=== PATIENT | female | born 1965 | race American Indian/Alaskan Native ===

== ENCOUNTER 2016-07-05 02:15 | Inpatient (IN) | payer OTHER ==
[2016-07-05 02:53] VITALS: BMI 42.9
--- NOTE | 2016-07-05 03:24 | ED PDOC ---
Arrival/HPI - General Chief Complaint: GI Problem Time Seen by Provider: 07/05/16 03:00 Historian: Patient - History of Present Illness Narrative History of Present Illness (Text): 07/05/16 03:21 Bobbi Urbano is a 50 year old female, whose past medical history includes hypertension, asthma, gastritis, and cholecystectomy, presents to the the emergency department complaining of mild abdominal discomfort associated with nausea, vomiting, and diarrhea since yesterday. Also reports of subjective fever , chills and generalized body aches. Denies taking any mediations for the symptoms. Denies headache, dizziness, chest pain, shortness of breath, back pain , urinary symptoms, or any other complaints at this time. Time/Duration: Other (since yesterday ) Symptom Onset: Gradual Symptom Course: Unchanged Severity Level: Mild Activities at Onset: Light Past Medical History - Provider Review Nursing Documentation Reviewed: Yes - Infectious Disease Hx of Infectious Diseases: None - Cardiac Hx Cardiac Disorders: No Hx Angina: No Hx Cardiac Arrhythmia: No Hx Circulatory Problems: No Hx Congestive Heart Failure: No Hx Heart Murmur: No Hx Heart Transplant: No Hx Hypertension: No Hx Internal Defibrillator: No Hx Mitral Valve Prolapse: No Hx Pacemaker: No Hx Peripheral Edema: No Hx Peripheral Vascular Disease: No - Pulmonary Hx Respiratory Disorders: No Hx Asthma: Yes Hx Bronchitis: No Hx Chronic Obstructive Pulmonary Disease (COPD): No Hx Emphysema: No Hx Pneumonia: No Hx Respiratory Aspiration: No Hx Respiratory Tract Infection: No Hx Sleep Apnea: No Hx Tuberculosis: No - Neurological Hx Neurological Disorder: No Hx Alzheimer's Disease: No HX Cerebrovascular Accident: No Hx Dementia: No Hx Dizziness: No Hx Meningitis: No Hx Migraine: No Hx Parkinson's Disease: No Hx Seizures: No Hx Transient Ischemic Attacks (TIA): No - HEENT Hx HEENT Disorder: No Hx Blind: No Hx Cataracts: No Hx Deafness: No Hx Difficulty Chewing: No Hx Epistaxis: No Hx Glaucoma: No Hx Macular Degeneration: No - Renal Hx Renal Disorder: No Hx Dialysis: No Hx Kidney Stones: No Hx Neurogenic Bladder: No Hx Pyelonephritis: No Hx Renal Cancer: No Hx Renal Failure: No - Endocrine/Metabolic Hx Endocrine Disorders: No Hx Adrenal Cancer: No Hx Diabetes Insipidus: No Hx Diabetes Mellitus Type 1: No Hx Diabetes Mellitus Type 2: No Hx Hyperthyroidism: No Hx Hypothyroidism: No Hx Systemic Lupus Erythematosus: No - Hematological/Oncological Hx Blood Disorders: No Hx AIDS: No Hx Anemia: No Hx Cancer: No Hx Chemotherapy: No Hx Cirrhosis: No Hx Hemophilia: No Hx Hepatitis A: No Hx Hepatitis B: No Hx Hepatitis C: No Hx Metastasis: No Hx Shingles: No Hx Sickle Cell Disease: No Hx Unexplained Bleeding: No - Integumentary Hx Dermatological Disorder: No Hx Basal Cell Carcinoma: No Hx Eczema: No Hx Melanoma: No Hx Psoriasis: No Hx Squamous Cell Carcinoma: No - Musculoskeletal/Rheumatological Hx Musculoskeletal Disorders: No Hx Arthritis: No Hx Back Pain: No Hx Degenerative Joint Disease: No Hx Falls: No Hx Fractures: No Hx Gout: No Hx Herniated Disk: No Hx Myasthenia Gravis: No Hx Osteoarthritis: No Hx Osteomyelitis: No Hx Osteoporosis: No Hx Rhabdomyolysis: No Hx Spinal Stenosis: No Hx Unsteady Gait: No - Gastrointestinal Hx Gastrointestinal Disorders: No Hx Colostomy: No Hx Crohn's Disease: No Hx Diverticulitis: No Hx Gall Bladder Disease: No Hx Gastritis: Yes Hx Gastroesophageal Reflux: No Hx Gastrointestinal Ulcer: No Hx Ileostomy: No Hx Liver Failure: No Hx Pancreatitis: No HX Swallowing Problems: No - Genitourinary/Gynecological Hx Genitourinary Disorders: No Hx Hematuria: No Hx Incontinence: No Hx Prostate Problems: No Hx Sexually Transmitted Diseases: No Hx Urinary Tract Infection: No - Psychiatric Hx Psychophysiologic Disorder: No Hx Anxiety: No Hx Bipolar Disorder: No Hx Depression: No Hx Emotional Abuse: No Hx Hallucinations: No Hx Panic Disorder: No Hx Post Traumatic Stress Disorder: No Hx Psychosis: No Hx Physical Abuse: No Hx Schizophrenia: No Hx Sexual Abuse: No Hx Substance Use: No - Surgical History Hx Amputation: No Hx Appendectomy: Yes Hx Cardiac Catheterization: No Hx Cholecystectomy: Yes Hx Coronary Stent: No Hx Gastric Bypass Surgery: No Hx Hysterectomy: No Hx Joint Replacement: No Hx Kidney Transplant: No Hx Liver Transplant: No Hx Mastectomy: No Hx Musculoskeletal Surgery: No Hx Open Heart Surgery: No Hx Orthopedic Surgery: No Hx Splenectomy: No Hx Valve Replacement: No - Anesthesia Hx Anesthesia: No Hx Anesthesia Reactions: No Hx Malignant Hyperthermia: No Family/Social History - Physician Review Nursing Documentation Reviewed: Yes Family/Social History: No Known Family HX Smoking Status: Never Smoked Hx Alcohol Use: No Hx Substance Use: No Allergies/Home Meds Allergies/Adverse Reactions: Allergies No Known Allergies Allergy (Verified 07/05/16 02:53) Home Medications: Home Meds Medication Instructions Recorded Confirmed Fluticasone/Salmeterol 250/50 1 puff INH DAILY 02/07/15 05/18/15 [Advair Diskus 250/50] Lisinopril 10 mg PO DAILY 02/07/15 05/18/15 Review of Systems - Physician Review All systems were reviewed & negative as marked: Yes - Review of Systems Constitutional: Fatigue, Fevers Respiratory: Normal. absent: SOB, Cough Cardiovascular: Normal. absent: Chest Pain, Palpitations Gastrointestinal: Abdominal Pain, Diarrhea, Nausea, Vomiting Genitourinary Female: Normal. absent: Dysuria, Frequency Musculoskeletal: Normal Neurological: Normal. absent: Headache, Dizziness Psychiatric: Normal Physical Exam Vital Signs Reviewed: Yes Vital Signs Temp Pulse Resp BP Pulse Ox 07/05/16 06:17 100.2 F H 99 H 20 116/76 97 07/05/16 03:34 101.7 F H 07/05/16 02:53 101.7 F H 63 18 99 07/05/16 02:51 101.7 F H 123 H 18 129/83 96 Temperature: Febrile Blood Pressure: Hypertensive Pulse: Regular Respiratory Rate: Normal Appearance: Positive for: Well-Appearing, Non-Toxic, Comfortable Pain Distress: None Mental Status: Positive for: Alert and Oriented X 3 - Systems Exam Head: Present: Atraumatic, Normocephalic Pupils: Present: PERRL Conjunctiva: Present: Normal Mouth: Present: Moist Mucous Membranes Respiratory/Chest: Present: Clear to Auscultation, Good Air Exchange. No: Respiratory Distress, Accessory Muscle Use Cardiovascular: Present: Regular Rate and Rhythm, Normal S1, S2. No: Murmurs Abdomen: Present: Normal Bowel Sounds. No: Tenderness, Distention, Peritoneal Signs Upper Extremity: Present: Normal Inspection. No: Cyanosis, Edema Lower Extremity: Present: Normal Inspection. No: Edema Neurological: Present: GCS=15, CN II-XII Intact, Speech Normal Skin: Present: Warm, Dry, Normal Color. No: Rashes Psychiatric: Present: Alert, Oriented x 3, Normal Insight, Normal Concentration Medical Decision Making ED Course and Treatment: 07/05/16 03:26 Impression: A 50 year old female who presents to the emergency department complaining of some abdominal discomfort associated with nausea, vomiting, and diarrhea. Plan: -- Labs, lipase -- CT abdomen pelvis -- Chest X-ray -- Pepcid -- IV fluids -- Tylenol -- Zofran -- Blood culture -- Urine culture -- Urinalysis -- Reassess and disposition Progress Notes: 07/05/16 05:48 CT abdomen pelvis results reviewed: IMPRESSION: High suspicion for right lower lobe pneumonia. The lung pathology is not imaged in its entirety. Fibroid uterus Common bile duct prominent, laboratory correlation, noting that this may be chronic for this patient. diverticulosis with no specific findings of acute diverticulitis. Please refer to the final report, as additional comparisons or other additional information may be available at that time. 07/05/16 05:55 Chest X-ray interpreted by me: Right lower lobe infiltrate. 07/05/16 06:21 Case was discussed with .Accepts to her service.. - Lab Interpretations Lab Results: 07/05/16 03:29 07/05/16 03:29 Lab Results 07/05/16 03:31: Urine Color Yellow, Urine Appearance Sl cloudy, Urine pH 6.0, Ur Specific [place] >= 1.030, Urine Protein 30 H, Urine Glucose (UA) Negative, Urine Ketones Negative, Urine Blood Trace-intact H, Urine Nitrate Negative, Urine Bilirubin Negative, Urine Urobilinogen 0.2, Ur Leukocyte Esterase Negative , Urine RBC 0 - 2, Urine WBC 0 - 2, Ur Epithelial Cells 1 - 3 07/05/16 03:29: pO2 81 H, VBG pH 7.42, VBG pCO2 41.0, VBG HCO3 26.6, VBG Total CO2 27.9, VBG O2 Sat (Calc) 98.4 H, VBG Base Excess 1.9, VBG Potassium 3.6, Sodium 139.0, Chloride 108.0 H, Glucose 110 H, Lactate 1.1, FiO2 21.0, Venous Blood Potassium 3.6 07/05/16 03:29: WBC 15.1 H D, RBC 4.21, Hgb 8.4 L, Hct 27.9 L, MCV 66.3 L, MCH 20.0 L, MCHC 30.1 L, RDW 18.3 H, Plt Count 373, MPV 9.7, Neutrophils % (Manual) 81 H, Band Neutrophils % 9 H, Lymphocytes % (Manual) 5 L, Monocytes % (Manual) 5 , Platelet Evaluation Normal, Hypochromasia 1+, Poikilocytosis (manual Slight, Anisocytosis (manual) 1+, Microcytosis (manual) 1+ 07/05/16 03:29: Sodium 139, Chloride 103, Potassium 3.5 L, Carbon Dioxide 26, Anion Gap 14, BUN 11, Creatinine 0.8, Est GFR ( Amer) > 60, Est GFR (Non- Af Amer) > 60, Random Glucose 107, Calcium 8.9, Total Bilirubin 0.8, AST 17, ALT 30, Alkaline Phosphatase 69, Total Protein 7.7, Albumin 3.9, Globulin 3.8, Albumin/Globulin Ratio 1.0 L, Lipase 32 I have reviewed the lab results: Yes - RAD Interpretation Narrative RAD Interpretations (Text): EXAM: CT Abdomen and Pelvis Without Intravenous Contrast FINDINGS: Lower thorax: There are numerous centrilobular nodules seen in an area of groundglass opacity in the right lower lobe, see for example series 2 image 5 and adjacent, the finding is in keeping with pneumonia, other causes less likely, although confirmation of complete clearing is recommended. There is note that this finding is not imaged in its entirety. Large hiatus hernia. ABDOMEN: Liver: 20.4cm, prominent. Gallbladder and bile ducts: Status post cholecystectomy. Common bile duct is 10 mm, prominent, however this may be chronic noting prior cholecystectomy, left correlation is recommended. Pancreas: Unremarkable. No ductal dilation. Spleen: Unremarkable. No splenomegaly. Adrenals: Unremarkable. No mass. Kidneys and ureters: No ureteral stones are seen noting that punctate stones or noncalcified stones may not be well seen on CT. punctate pelvic calcifications appear stable and are favored to represent phleboliths. Stomach and bowel: Diverticular disease with no specific findings of acute diverticulitis. limited evaluation of the bowel wall related to under distention with no findings to suggest an acute bowel process. Appendix: The appendix is within normal limits. PELVIS: Bladder: Unremarkable. No stones. Reproductive: Redemonstration of a prominent uterus with fibroids, including again note of bilateral exophytic fibroids at the anterior aspect of the uterus. ABDOMEN and PELVIS: Intraperitoneal space: There is no free intraperitoneal air. No significant fluid collection. Bones/joints: Bony structures with no acute fractures. No dislocation. Soft tissues: There is a small fat containing anterior abdominal hernia.No abdominal wall hernias containing bowel. Vasculature: Unremarkable. No abdominal aortic aneurysm. Lymph nodes: There are small mesenteric nodes, these do not meet size criteria for pathologic enlargement. Other findings: There is comparison to previous study dated May 18, 2015. IMPRESSION: High suspicion for right lower lobe pneumonia. The lung pathology is not imaged in its entirety. Fibroid uterus Common bile duct prominent, laboratory correlation, noting that this may be chronic for this patient. diverticulosis with no specific findings of acute diverticulitis. Please refer to the final report, as additional comparisons or other additional information may be available at that time. Radiology Orders: 07/05/16 03:05 CHEST PORTABLE [RAD] Stat 07/05/16 04:17 ABD & PELVIS W/O PO OR IV CONT [CT] Stat Traffic Control Supervisor: Radiologist - Medication Orders Current Medication Orders: Ceftriaxone Sodium (Rocephin 1 Gram Ivpb) 1 gm in 100 mls @ 200 mls/hr IV ONCE STA PRN Reason: Protocol Stop: 07/05/16 06:23 Azithromycin (Zithromax 500mg In Ns) 500 mg in 250 mls @ 166.667 mls/hr IV STAT STA PRN Reason: Protocol Stop: 07/05/16 07:23 Discontinued Medications Acetaminophen (Tylenol 325mg Tab) 650 mg PO STAT STA Stop: 07/05/16 03:07 Last Admin: 07/05/16 03:34 Dose: 650 mg Famotidine (Pepcid) 20 mg IVP STAT STA Stop: 07/05/16 03:07 Last Admin: 07/05/16 03:34 Dose: 20 mg Sodium Chloride (Sodium Chloride 0.9%) 1,000 mls @ 999 mls/hr IV .Q1H1M STA Stop: 07/05/16 04:06 Last Admin: 07/05/16 05:26 Dose: 999 mls/hr Ondansetron HCl (Zofran Inj) 4 mg IVP ONCE ONE Stop: 07/05/16 03:07 Last Admin: 07/05/16 03:35 Dose: 4 mg - Scribe Statement The provider has reviewed the documentation as recorded by the Jt Caldwell Provider Attestation: All medical record entries made by the Jt were at my direction and personally dictated by me. I have reviewed the chart and agree that the record accurately reflects my personal performance of the history, physical exam, medical decision making, and the department course for this patient. I have also personally directed, reviewed, and agree with the discharge instructions and disposition. Disposition/Present on Arrival - Present on Arrival Any Indicators Present on Arrival: No History of DVT/PE: No History of Uncontrolled Diabetes: No Urinary Catheter: No History of Decub. Ulcer: No History Surgical Site Infection Following: None - Disposition Have Diagnosis and Disposition been Completed?: Yes Diagnosis: Pneumonia, Gastroenteritis, Anemia Disposition: HOSPITALIZED Disposition Time: 06:21 Patient Plan: Admission Condition: STABLE Referrals: Justin Bonner, [Primary Care Provider] - Follow up with primary
[2016-07-05] MEDS: Sodium Chloride 0.9% 1,000 ML IV STA ×2 (03:34→05:26)
[2016-07-05 03:45] LABS: URINE BILIRUBIN NEGATIVE (NEGATIVE); URINE BLOOD TRACE-INTACT (NEGATIVE); URINE GLUCOSE (UA) NEGATIVE (NEGATIVE); URINE KETONE NEGATIVE (NEGATIVE); URINE LEUKOCYTE ESTERASE NEGATIVE Leu/uL (NEGATIVE); URINE PROTEIN 30 mg/dL (<30 mg/dL); URINE UROBILINOGEN 0.2 E.U./dL (<1 E.U./dL)
[2016-07-05 03:52] LABS: ALKALINE PHOSPHATASE 69 U/L (38-133); ALT/SGPT 30 U/L (7-56); AST/SGOT 17 U/L (15-39); BILIRUBIN,TOTAL 0.8 mg/dL (0.2-1.3); BLOOD UREA NITROGEN 11 mg/dL (7-21); CALCIUM 8.9 mg/dL (8.4-10.5); CARBON DIOXIDE 26 mmol/L (21-33); CHLORIDE 103 mmol/L (95-110); GFR AFRICAN-AMERICAN > 60; GLUCOSE,RANDOM 107 mg/dL (70-110); HEMATOCRIT 27.9 % (36.0-48.0); LIPASE 32 U/L (23-300); MEAN CELL VOLUME 66.3 fL (80.0-105.0); MEAN CORPUSCULAR HGB CONC 30.1 g/dl (31.0-37.0); MEAN PLATELET VOLUME 9.7 fl (7.0-11.0); PLATELET COUNT 373 10^3/uL (120.0-450.0); POTASSIUM 3.5 mmol/L (3.6-5.0); RED CELL DISTRIBUTION WIDTH 18.3 % (11.5-14.5); SODIUM 139 mmol/L (132-148); TOTAL PROTEIN 7.7 g/dL (5.8-8.3); WHITE BLOOD COUNT 15.1 10^3/ul (4.5-11.0)
[2016-07-05 04:06] LABS: URINE APPEARANCE SL CLOUDY (CLEAR); URINE COLOR YELLOW (YELLOW)
[2016-07-05 04:08] LABS: URINE RBC 0 - 2 /hpf (0-2); URINE WBC 0 - 2 /hpf (0-6)
[2016-07-05 04:14] LABS: VENOUS BLOOD GAS BASE EXCESS 1.9 mmol/L (0.0-2.0); VENOUS BLOOD PH 7.42 (7.32-7.43)
[2016-07-05 05:04] LABS: BAND 9 % (0-2); NEUTROPHIL 81 % (50.0-70.0)
[2016-07-05 05:05] LABS: ANISOCYTOSIS 1+; HYPOCHROMIA 1+; MICROCYTOSIS 1+; PLATELET ESTIMATE NORMAL (NORMAL); POIKILOCYTOSIS SLIGHT
[2016-07-05] MEDS: cefTRIAXone 1 gm 1 GM/100 ML BAG IV STA ×2 (06:29→07:09)
[2016-07-05] MEDS ORDERED: Sodium Chloride 0.9% 1,000 ML IV STA (06:30)
[2016-07-05] MEDS: Azithromycin 500MG/NS 250ml 500 MG/250 ML BAG IV STA (07:10)
--- NOTE | 2016-07-05 08:02 | RAD ---
HISTORY: fever COMPARISON: No prior. FINDINGS: LUNGS: There is mild vascular congestion. There is a minimal patchy infiltrate at the right lung base PLEURA: No significant pleural effusion identified, no pneumothorax apparent. CARDIOVASCULAR: Normal. OSSEOUS STRUCTURES: No significant abnormalities. VISUALIZED UPPER ABDOMEN: Normal. OTHER FINDINGS: None. IMPRESSION: Minimal patchy infiltrate at the right lung base
--- NOTE | 2016-07-05 08:39 | CT ---
PROCEDURE: CT Abdomen and Pelvis without intravenous contrast HISTORY: pain COMPARISON: 05/18/2015 TECHNIQUE: Without contrast. Contrast Dose: Radiation dose: Total exam DLP = 1342 mGy-cm. This CT exam was performed using one or more of the following dose reduction techniques: Automated exposure control, adjustment of the mA and/or kV according to patient size, and/or use of iterative reconstruction technique. FINDINGS: LOWER THORAX: There is an infiltrate at the right lung base consistent with pneumonia. LIVER: Unremarkable. No gross lesion or ductal dilatation. GALLBLADDER AND BILE DUCTS: Gallbladder removed PANCREAS: Unremarkable. No gross lesion or ductal dilatation. SPLEEN: Unremarkable. ADRENALS: Unremarkable. No mass. KIDNEYS AND URETERS: Unremarkable. No hydronephrosis. No solid mass. VASCULATURE: Unremarkable. No aortic aneurysm. BOWEL: Unremarkable. No obstruction. No gross mural thickening. APPENDIX: Unremarkable. Normal appendix. PERITONEUM: Unremarkable. No free fluid. No free air. LYMPH NODES: Unremarkable. No enlarged lymph nodes. BLADDER: Unremarkable. REPRODUCTIVE: Fibroid uterus BONES: No acute fracture. OTHER FINDINGS: The report concurs with the preliminary [facility] report IMPRESSION: Right lower lobe pneumonia. No acute intra-abdominal findings
[2016-07-05] MEDS ORDERED: Fluticasone-Salmeterol 250-50mcg Diskus INH SCH (10:00)
[2016-07-05] MEDS ORDERED: LISINOPRIL 10 MG PO SCH (10:00)
--- NOTE | 2016-07-05 12:45 | CON ---
DATE: 07/05/2016 Seen and examined at the bedside earlier today. REQUEST FOR CONSULT: Gastroenteritis and anemia. HISTORY OF PRESENT ILLNESS: This is a 50-year-old obese female with a past medical history of hypert ension, asthma, diverticulitis, came to the Emergency Room with complaints of abdominal pain, nausea, vomiting and diarrhea. The patient reports that Monday she started out with a fever and Monday star gunnar having nausea, vomiting, and diarrhea around 11:00 a.m. She denies any recent travel, any contri buting oral intake, but does report that her grandson was sick at home with a fever and some oral inf ection as well as her son who was having a sore throat at home. She did state that she was sick abou t 2 months ago with strep throat and was on antibiotics of amoxicillin. When her symptoms of fever s tarted, she took an amoxicillin. She had 2 episodes of diarrhea while here in the hospital. No repo rts of any bleeding, did complain of nausea, but no vomiting. Complains of chills. On admission, geovanni ho did have a temperature of 101.7. She also had a chest x-ray done on admission which showed patchy infiltrate in the right lung base. Her CT scan of abdomen and pelvis was negative for acute intraabd ominal findings. She denies any dysuria, any hematuria. No shortness of breath. Denies chest pain, weight loss or loss of appetite. PAST MEDICAL HISTORY: Hypertension, asthma, gastritis, diverticulitis back in 2014. PAST SURGICAL HISTORY: Cholecystectomy. She has never had an endoscopy or colonoscopy. She was rec ommended colonoscopy in the past, but has not scheduled this. SOCIAL HISTORY: Denies smoking, ETOH, or substance abuse. FAMILY HISTORY: Her paternal grandfather with colon cancer. VITAL SIGNS: Her temperature this morning was 99.5, 105/56, respirations 18, 95 on room air. At 6:0 0 a.m., her temp was 100.2. LABORATORY DATE: WBC is 15.1, H and H is 8.4 and 27.9, platelets of 373. Her sodium 139, K is 3.5, BUN is 11 and creatinine is 0.8. Total bilirubin is 0.8, AST 17, ALT 30, alkaline phosphatase is 69. Lipase is 32. Urine leuko esterase negative, trace intact blood. Last menstrual period was last m onth. She gets it regularly. Chest x-ray showed mild vascular congestion, minimal patchy infiltrate in the right lung base. The C T scan shows infiltrate in the right lung base consistent with pneumonia, cholecystectomy, no acute i ntraabdominal findings. PHYSICAL EXAMINATION: HEENT: Sclerae are anicteric. NECK: Supple. CARDIAC: S1, S2. LUNGS: With decreased breath sounds. Did not hear any rales or wheeze. ABDOMEN: With bowel sounds, soft, nontender at this time. No rebound, guarding, or organomegaly. EXTREMITIES: Positive pedal pulses, no edema. NEUROLOGIC: Awake, alert, and oriented. ASSESSMENT: A 50-year-old female who came with complaints of nausea, vomiting, diarrhea and fever, m ay be viral gastroenteritis. The patient with recent history of strep throat as well and recent anti biotic use. Rule out any Clostridium difficile. The patient also with infiltrates in the lung, rule out pneumonia. She is also noted to have anemia, history of diverticulitis, hypertension and asthma . PLAN: Start clear liquid diet, see how the patient tolerates this. We will request for a stool for C. diff in view of history of antibiotics. We will also follow up blood cultures, urine cultures, co ntinue GI prophylaxis, on Pepcid. The patient is on IV antibiotics of azithromycin and ceftriaxone, is also on Solu-Medrol, continue IV fluids for hydration. I did discuss with the patient that she wo uld benefit from elective outpatient endoscopy and colonoscopy when optimal in view of anemia as well as the patient has been on long-term PPI and also the patient has never had a colonoscopy as well. We will also request for iron studies, B12, folate and folic acid levels. Thank you for this consult and for allowing us to participate in your patient's care. We will make andreas paredes recommendations based upon patient's clinical course. The patient was seen and case discussed with Dr. Adame. Kaylee Keira LEOLA cc: [id number] TT: 07/05/2016 12:45:08 Confirmation # [id number] Dictation # [id number]
[2016-07-05] MEDS: Arformoterol 15 mcg/2 ml Inh Sol IH SCH (13:40)
[2016-07-05] MEDS: Albuterol-Ipratrop 3 mg / 0.5 (3 ml) UD IH SCH ×2 (13:40→20:02)
[2016-07-05] MEDS: Budesonide 0.5 mg/2 ml Inhal Susp UD IH SCH (13:40)
--- NOTE | 2016-07-05 19:48 | CP.PCM.CON ---
History of Present Illness - History of Present Illness History of Present Illness: Infectious Disease Consultation: July 05, 2016 50 yo female with presentation of nausea, vomiting, diarrhea, and subjective fevers and chills. She also complains of body aches. She is found to have a fever up to 102.2 and leukocytosis of 15 in the ER. The patient had strep throat two months ago. She was given amoxicillin for treatment. The patient still takes amoxicillin doses when she feels febrile. PMHx: Asthma, Hypertension, gastritis PSHx: Cholecystectomy Allergies: NKDA Social Hx: No tobacco, EtOH, or illicit drug use. Works a desk job Active Medications Acetaminophen (Tylenol 325mg Tab) 650 mg PO Q6H PRN PRN Reason: Fever >100.4 F Albuterol/Ipratropium (Duoneb 3 Mg/0.5 Mg (3 Ml) Ud) 3 ml IH [id number] COUNTS INCLUDE 234 BEDS AT THE [facility] Last Admin: 07/05/16 13:40 Dose: 3 ml Arformoterol Tartrate (Brovana) 15 mcg IH DAILY COUNTS INCLUDE 234 BEDS AT THE [facility] Last Admin: 07/05/16 13:40 Dose: 15 mcg Budesonide (Pulmicort Respules) 0.5 mg IH DAILY COUNTS INCLUDE 234 BEDS AT THE [facility] Last Admin: 07/05/16 13:40 Dose: 0.5 mg Famotidine (Pepcid) 40 mg PO HS COUNTS INCLUDE 234 BEDS AT THE [facility] Ceftriaxone Sodium (Rocephin 1 Gram Ivpb) 1 gm in 100 mls @ 100 mls/hr IVPB DAILY COUNTS INCLUDE 234 BEDS AT THE [facility] PRN Reason: Protocol Azithromycin (Zithromax 500mg In Ns) 500 mg in 250 mls @ 167 mls/hr IVPB DAILY COUNTS INCLUDE 234 BEDS AT THE [facility] Lisinopril (Zestril) 10 mg PO DAILY COUNTS INCLUDE 234 BEDS AT THE [facility] Methylprednisolone (Solu-Medrol) 20 mg IVP Q12 COUNTS INCLUDE 234 BEDS AT THE [facility] Metronidazole (Flagyl) 250 mg PO QID COUNTS INCLUDE 234 BEDS AT THE [facility] PRN Reason: Protocol Last Admin: 07/05/16 17:19 Dose: 250 mg Family Hx: breast cancer mother. Hypertension father. ROS: Nausea, vomiting, diarrhea, fevers, chills. No abdominal pain, chest pain, melena, hematuria, hematemesis, hematochezia, depression, anxiety. Past Patient History - Infectious Disease Hx of Infectious Diseases: None - Past Social History Smoking Status: Never Smoked - CARDIAC Hx Cardiac Disorders: No Hx Angina: No Hx Cardia Arrhythmia: No Hx Circulatory Problems: No Hx Congestive Heart Failure: No Hx Heart Murmur: No Hx Heart Transplant: No Hx Hypertension: No Hx Internal Defibrillator: No Hx Mitral Valve Prolapse: No Hx Pacemaker: No Hx Peripheral Edema: No Hx Peripheral Vascular Disease: No - PULMONARY Hx Respiratory Disorders: No Hx Asthma: Yes Hx Bronchitis: No Hx Chronic Obstructive Pulmonary Disease (COPD): No Hx Emphysema: No Hx Pneumonia: No Hx Respiratory Aspiration: No Hx Respiratory Tract Infection: No Hx Sleep Apnea: No Hx Tuberculosis: No - NEUROLOGICAL Hx Neurological Disorder: No Hx Alzheimer's Disease: No HX Cerebrovascular Accident: No Hx Dementia: No Hx Dizziness: No Hx Meningitis: No Hx Migraine: No Hx Parkinson's Disease: No Hx Seizures: No Hx Transient Ischemic Attacks (TIA): No - HEENT Hx HEENT Problems: No Hx Blind: No Hx Cataracts: No Hx Deafness: No Hx Difficulty Chewing: No Hx Epistaxis: No Hx Glaucoma: No Hx Macular Degeneration: No - RENAL Hx Chronic Kidney Disease: No Hx Dialysis: No Hx Kidney Stones: No Hx Neurogenic Bladder: No Hx Pyelonephritis: No Hx Renal (Kidney) Cancer: No Hx Renal Failure: No - ENDOCRINE/METABOLIC Hx Endocrine Disorders: No Hx Adrenal Cancer: No Hx Diabetes Insipidus: No Hx Diabetes Mellitus Type 1: No Hx Diabetes Mellitus Type 2: No Hx Hyperthyroidism: No Hx Hypothyroidism: No Hx Systemic Lupus Erythematosus: No - HEMATOLOGICAL/ONCOLOGICAL Hx Blood Disorders: No Hx AIDS: No Hx Anemia: No Hx Cancer: No Hx Chemotherapy: No Hx Cirrhosis: No Hx Hemophilia: No Hx Hepatitis A: No Hx Hepatitis B: No Hx Hepatitis C: No Hx Metastesis: No Hx Shingles: No Hx Sickle Cell Disease: No Hx Unexplained Bleeding: No - INTEGUMENTARY Hx Dermatological Problems: No Hx Basil Cell: No Hx Eczema: No Hx Melanoma: No Hx Psoriasis: No Hx Squamous Cell: No - MUSCULOSKELETAL/RHEUMATOLOGICAL Hx Falls: No - GASTROINTESTINAL Hx Gastrointestinal Disorders: No Hx Colostomy: No Hx Crohn's Disease: No Hx Diverticulitis: No Hx Gall Bladder Disease: No Hx Gastroesophageal Reflux: No Hx Ileostomy: No Hx Liver Failure: No Hx Pancreatitis: No HX Swallowing Problems: No - GENITOURINARY/GYNECOLOGICAL Hx Genitourinary Disorders: No Hx Hematuria: No Hx Incontinence: No Hx Sexually Transmitted Disorders: No Hx Urinary Tract Infection: No - PSYCHIATRIC Hx Psychophysiologic Disorder: No Hx Anxiety: No Hx Bipolar Disorder: No Hx Depression: No Hx Emotional Abuse: No Hx Hallucinations: No Hx Panic Symptoms: No Hx Post Traumatic Stress Disorder: No Hx Psychosis: No Hx Physical Abuse: No Hx Schizophrenia: No Hx Sexual Abuse: No - SURGICAL HISTORY Hx Amputation: No Hx Appendectomy: Yes Hx Cardiac Catheterization: No Hx Cholecystectomy: Yes Hx Coronary Stent: No Hx Gastric Bypass Surgery: No Hx Hysterectomy: No Hx Joint Replacement: No Hx Kidney Transplant: No Hx Liver Transplant: No Hx Mastectomy: No Hx Musculoskeletal Surgery: No Hx Open Heart Surgery: No Hx Orthopedic Surgery: No Hx Splenectomy: No Hx Valve Replacement: No - ANESTHESIA Hx Anesthesia: No Hx Anesthesia Reactions: No Hx Malignant Hyperthermia: No Meds Allergies/Adverse Reactions: Allergies Allergy/AdvReac Type Severity Reaction Status Date / Time No Known Allergies Allergy Verified 07/05/16 02:53 - Medications Medications: Current Medications Acetaminophen (Tylenol 325mg Tab) 650 mg PO Q6H PRN PRN Reason: Fever >100.4 F Albuterol/Ipratropium (Duoneb 3 Mg/0.5 Mg (3 Ml) Ud) 3 ml IH [id number] COUNTS INCLUDE 234 BEDS AT THE [facility] Last Admin: 07/05/16 13:40 Dose: 3 ml Arformoterol Tartrate (Brovana) 15 mcg IH DAILY COUNTS INCLUDE 234 BEDS AT THE [facility] Last Admin: 07/05/16 13:40 Dose: 15 mcg Budesonide (Pulmicort Respules) 0.5 mg IH DAILY COUNTS INCLUDE 234 BEDS AT THE [facility] Last Admin: 07/05/16 13:40 Dose: 0.5 mg Famotidine (Pepcid) 40 mg PO HS COUNTS INCLUDE 234 BEDS AT THE [facility] Ceftriaxone Sodium (Rocephin 1 Gram Ivpb) 1 gm in 100 mls @ 100 mls/hr IVPB DAILY COUNTS INCLUDE 234 BEDS AT THE [facility] PRN Reason: Protocol Azithromycin (Zithromax 500mg In Ns) 500 mg in 250 mls @ 167 mls/hr IVPB DAILY COUNTS INCLUDE 234 BEDS AT THE [facility] Lisinopril (Zestril) 10 mg PO DAILY COUNTS INCLUDE 234 BEDS AT THE [facility] Methylprednisolone (Solu-Medrol) 20 mg IVP Q12 COUNTS INCLUDE 234 BEDS AT THE [facility] Metronidazole (Flagyl) 250 mg PO QID COUNTS INCLUDE 234 BEDS AT THE [facility] PRN Reason: Protocol Last Admin: 07/05/16 17:19 Dose: 250 mg Physical Exam - Constitutional Appears: Non-toxic, No Acute Distress - Head Exam Head Exam: ATRAUMATIC, NORMOCEPHALIC - Eye Exam Eye Exam: PERRL Pupil Exam: NORMAL ACCOMODATION, PERRL - ENT Exam ENT Exam: Mucous Membranes Moist, Normal External Ear Exam, TM's Normal Bilaterally - Neck Exam Neck exam: Positive for: Full Rom, Normal Inspection - Respiratory Exam Respiratory Exam: Decreased Breath Sounds, Rhonchi, NORMAL BREATHING PATTERN. absent: Rales, Wheezes Additional comments: rhonchi right lower lobe. - Cardiovascular Exam Cardiovascular Exam: REGULAR RHYTHM, RRR, +S1, +S2 - GI/Abdominal Exam GI & Abdominal Exam: Normal Bowel Sounds, Soft. absent: Distended, Tenderness - Extremities Exam Extremities exam: Positive for: full ROM, normal inspection - Neurological Exam Neurological exam: Alert, CN II-XII Intact, Oriented x3 - Psychiatric Exam Psychiatric exam: Normal Affect, Normal Mood - Skin Skin Exam: Intact, Normal Color Results - Vital Signs Recent Vital Signs: Last Vital Signs Temp 100.2 F H 07/05/16 16:00 Pulse 102 H 07/05/16 16:00 Resp 18 07/05/16 16:00 BP 122/74 07/05/16 16:00 Pulse Ox 95 07/05/16 16:00 - Labs Result Diagrams: 07/05/16 03:29 07/05/16 03:29 Assessment & Plan - Assessment and Plan (Free Text) Assessment: 50 yo female with nausea, vomiting, diarrhea, and fevers up to 102.2 F. The patient with inconsistent antibiotic use with amoxicillin. Findings of RLL pneunomia on Chest X-ray and CT scan. Patient started on Rocephin, Azithromycin , and Metronidazole. Agree with testing for C. diff. Supportive care. Monitor imaging studies and leukocytosis. Julian cultures sent. The use of Rocephin, Azithromycin, and Flagyl are adequate treatment for now. Thank you for allowing me to participate in the care of the patient, we will follow with you.
[2016-07-05 21:49] LABS: FOLATE > 20.0 ng/mL
[2016-07-05] MEDS ORDERED: MethylPREDNISolone 40 mg Vial IVP SCH (22:00)
[2016-07-06] MEDS: Albuterol-Ipratrop 3 mg / 0.5 (3 ml) UD IH SCH ×4 (03:00→20:19)
--- NOTE | 2016-07-06 03:13 | CON ---
DATE: 07/05/2016 ADDENDUM: HISTORY OF PRESENT ILLNESS: This patient was seen and evaluated earlier today. This is an addendum to the GI consultation report dictated by Kaylee Crockett NP. This patient was seen and evaluated [facility], imaging studies reviewed. The patient is admitted now with pneumonia. Has history of iron defic iency anemia. IMPRESSION: She has severe anemia. PLAN: The patient would benefit from endoscopic evaluation. Has episodes of diarrhea before. Prese ntly on two different antibiotics, ceftriaxone and also Zithromax. The reasonable thing is now to ad d the p.o. Flagyl at the present time. Waiting for the stool for Clostridium difficile. The patient would benefit from the upper GI endoscopy and colonoscopy. This could be considered once her respir atory status improves electively. Close followup of hemoglobin and hematocrit. Thank you very much for allowing us to participate in the care of the patient. Stephen Adame MD cc: [id number] TT: 07/06/2016 03:12:30 Confirmation # [id number] Dictation # [id number] anni
--- NOTE | 2016-07-06 05:05 | CON ---
DATE: 07/05/2016 REFERRING PHYSICIAN: Dr. Sorensen. REASON FOR CONSULT: Cough, shortness of breath, and pneumonia. HISTORY OF PRESENT ILLNESS: This is a 50-year-old female with past medical history significant for c hronic obstructive lung disease, hypertension, diverticulitis, lumbar radiculopathy, overweight, came into Emergency Room with nausea, vomiting, diarrhea. Also, started having fever 2 days ago. Did valenzuela ve a sick contact in the family. She was taking amoxicillin as an outpatient without much relief. F inally, had fever up to 101 and came to Emergency Room where CAT scan of the abdomen was done, shows patchy pulmonary infiltrates. She was started on antibiotics. There is no hemoptysis, no emesis, no hematuria, no diarrhea. Admits to have snoring at nighttime, daytime sleepy and tired. PAST MEDICAL HISTORY: Hypertension, history of diverticulitis, asthma. SOCIAL HISTORY: Denied any smoking or alcohol use. FAMILY HISTORY: No significant cardiopulmonary disease reported. MEDICATIONS: She is on Brovana 15 mcg inhaled daily, DuoNeb q. 6 hours p.r.n., Flagyl 250 mg q.i.d., Lovenox 40 mg daily, Pepcid 40 mg at bedtime, IV fluid with potassium 100 mL per hour, Pulmicort inh aled twice a day, Rocephin 1 gram daily, Tylenol p.r.n., Zestril 10 mg daily, Zithromax 500 mg daily, Zofran on a p.r.n. basis. REVIEW OF SYSTEMS: No headache, no rhinitis. Had nausea and vomiting. Mild cough. No shortness of breath. No chest pain. No dysuria. No leg pain or leg swelling. Admits she has snoring at nightt pete, daytime sleepy and tired. PHYSICAL EXAMINATION: GENERAL: No acute distress. VITAL SIGNS: Temperature is 102.2, heart rate is 102, respiratory rate is 20, blood pressure 143/65, pulse ox 94% on room air. HEENT: Moist mucous membranes. Crowded airway. Mallampati score is 4. NECK: Short, thick neck. LUNGS: Has scattered rhonchi. HEART: S1, S2. ABDOMEN: Soft, nontender. No organomegaly. EXTREMITIES: There is no edema. NEUROLOGIC: Awake, alert, follows simple commands. LABORATORY DATA: Shows hemoglobin 8.4, hematocrit 27.9, WBC 15.1, platelet is 373. Had VBG done on admission shows pH 7.42, pCO2 41, O2 is 81 on room air. Sodium 139, potassium 3.5, chloride 103, bic arbonate 26, BUN 11, creatinine 0.8, glucose 107, calcium is 8.9, iron is , ferritin is 11, AST 17, ALT 30, alkaline phosphatase is 69, albumin 3.9. Vitamin B12 is 268, folate is more than 20. C T of the abdomen was remarkable for right lower lobe pneumonia, otherwise no acute finding repo rted. Chest x-ray shows right lower lobe infiltrate. IMPRESSION AND PLAN: Severe anemia, which is iron-deficiency, and admitted with gastroenteritis, pro bably aspiration pneumonia, history of hypertension, chronic lung disease, may have a sleep apnea syn drome. Agree with Dr. Sorensen with the present management. The patient is already on antibiotics, se en by infectious disease with Dr. Lassiter. Inhaled bronchodilator. May give IV iron. The patient will b e followed by Dr. Adame from a GI point of view. Outpatient will need PFT and sleep study. Follow up labs in the morning. We will follow with you. Garrett Fox MD cc: [id number] TT: 07/06/2016 05:05:14 Confirmation # [id number] Dictation # [id number] tn
--- NOTE | 2016-07-06 06:42 | HP ---
CHIEF COMPLAINT: Abdominal pain, nausea, vomiting, diarrhea. HISTORY OF PRESENT ILLNESS: The patient is a 50-year-old female with past medical history of hypertension, asthma, gastritis, cholecystectomy, came to the Emergency Room with abdominal pain, nausea, vomiting, diarrhea. Also reports subjective fevers, chills and generalized body aches. Denies taking any medications for these symptoms. No headache, no dizziness, no chest pain. No back pain. No hematuria, no hematochezia. PAST MEDICAL HISTORY: Nonsignificant, history of gastritis, cholecystectomy. FAMILY HISTORY: Father and mother noncontributory. HABITS: No smoking, no drugs, no ethanol. ALLERGIES: The patient is not allergic with any medications. HOME MEDICATIONS: Advair, lisinopril. REVIEW OF SYSTEMS: The patient seen and examined on the bedside. Feeling feverish, fatigue and tired. Still having abdominal pain, nauseous and vomiting. No dysuria, no frequency. No headache, no dizziness. No psych problem. No chest pain, no palpitation, no coughing, no shortness of breath. PHYSICAL EXAMINATION: VITAL SIGNS: Temperature 100.2, T-max is 101.7, pulse 123, respiratory rate 18 , blood pressure 129/83, and pulse oximeter is 96. HEENT: Head normocephalic, atraumatic. Eyes: PERRLA. Extraocular muscles intact. Conjunctivae clear. Nose patent. Mucous membranes moist. NECK: Supple. No carotid bruit, JVD or thyromegaly. CHEST: Bilaterally symmetrical. HEART: S1, S2 positive. LUNGS: Clear to auscultation. ABDOMEN: Soft. Bowel sounds present. No organomegaly. EXTREMITIES: No edema, no cyanosis. NEUROLOGIC: The patient is awake, alert, moving all 4 extremities. No focal deficits. LABORATORY DATA: White blood cells 15.1, hemoglobin 8.4, hematocrit 27.9, and platelets 373. Sodium 139, potassium 3.5, BUN 11, creatinine 0.8, glucose 107. ASSESSMENT AND PLAN: The patient is a 50-year-old lady with leukocytosis, anemia, hypokalemia, came with fever, rule out sepsis, status post cholecystectomy, gastritis. Looks like patient has high suspicious of right lower lobe pneumonia, fibroid uterus, common bile duct prominent, diverticulosis with no specific findings of acute diverticulitis. Ceftriaxone given, azithromycin started. Pepcid for gastrointestinal prophylaxis started, Zofran started with nauseousness. Gastroenteritis. Infectious disease consult called with Dr. Lassiter. I appreciated Dr. Lassiter's input and the patient was seen by Kaylee Crockett, nurse practitioner, also. The patient took antibiotic as outpatient, it was inconsistent. Failed outpatient treatment. I started the patient on Rocephin and azithromycin. Dr. Lassiter added metronidazole also and wanted testing for Clostridium difficile toxin colitis. Julian cultures sent. Reviewed Dr. Lassiter's notes. I reviewed Kaylee Crockett' notes also. The patient has history of hypertension, asthma, back pain, may be viral gastroenteritis . The patient has recent history of strep throat. The patient was started on liquid diet, but she was constantly vomiting. I made her n.p.o. and started IV fluid. Continue hydration. The patient need maybe long-term proton pump inhibitor. Order blood tests. We will follow up. Johanna Sorensen MD cc: [id number] TT: 07/06/2016 06:42:02 tn MTDDelmar
[2016-07-06 07:20] LABS: HEMATOCRIT 28.1 % (36.0-48.0); MEAN CELL VOLUME 67.1 fL (80.0-105.0); MEAN CORPUSCULAR HEMOGLOBIN 19.6 pg (25.0-35.0); MEAN CORPUSCULAR HGB CONC 29.2 g/dl (31.0-37.0); RED CELL DISTRIBUTION WIDTH 18.5 % (11.5-14.5); WHITE BLOOD COUNT 11.1 10^3/ul (4.5-11.0)
[2016-07-06 07:29] LABS: BLOOD UREA NITROGEN 11 mg/dL (7-21); CALCIUM 8.9 mg/dL (8.4-10.5); CARBON DIOXIDE 28 mmol/L (21-33); CHLORIDE 101 mmol/L (95-110); CHOLESTEROL 166 mg/dL (130-200); GFR AFRICAN-AMERICAN > 60; GLUCOSE,RANDOM 111 mg/dL (70-110); SODIUM 139 mmol/L (132-148)
[2016-07-06] MEDS: Arformoterol 15 mcg/2 ml Inh Sol IH SCH ×2 (07:53→20:52)
[2016-07-06] MEDS: Budesonide 0.5 mg/2 ml Inhal Susp UD IH SCH ×2 (07:53→20:52)
[2016-07-06] MEDS: Enoxaparin 40 mg Syringe SC SCH (09:51)
[2016-07-06] MEDS: cefTRIAXone 1 gm 1 GM/100 ML BAG IVPB SCH (09:53)
[2016-07-06] MEDS ORDERED: Iron Sucrose 100 mg/5 ml Inj IVP SCH (10:00)
[2016-07-06] MEDS ORDERED: Azithromycin 500 MG in Sodium Chloride 0.9% 250 ML IVPB SCH (10:00)
[2016-07-06] MEDS: Azithromycin 500MG/NS 250ml 500 MG/250 ML BAG IVPB SCH (10:48)
--- NOTE | 2016-07-06 12:01 | PN ---
DATE: 07/05/2016 GI FOLLOWUP NOTE Seen and examined at the bedside earlier today. She did have loose bowel movement last night, and st ool for C. diff was obtained. Nausea is better today. The patient is scared to eat. Denies any ble eding. Still occasional feelings of chills. She did have fever last night of up to 101.1. VITAL SIGNS: This morning, her temperature is 99.6. Blood pressure is 122/67. Pulse is 57, respira tions 22, 95 on room air. Her blood cultures, so far, are negative x 2 as well as the urine culture. PHYSICAL EXAMINATION: HEENT: Sclerae are anicteric. NECK: Supple. CARDIAC: S1, S2. LUNGS: Lung sounds with decreased breath sounds, but good air entry. No rales or wheeze. ABDOMEN: With bowel sounds, softly obese, nontender. No organomegaly. EXTREMITIES: Positive pedal pulses. No edema. NEUROLOGIC: Awake, alert, and oriented. ASSESSMENT: A 50-year-old female with nausea, vomiting, diarrhea, and fever likely secondary to a vi ral gastroenteritis. The patient with recent history of strep throat. She is noted to have some jamir kocytosis, which is improved today. Found to have lung infiltrates, likely pneumonia, anemia, histor y of diverticulitis, hypertension, and asthma. PLAN: Advance the diet as tolerated. Offered to advance her diet. She is reluctant. We will see h ow she does for lunch. If she tolerates the clear liquids, then recommend to advance. The patient i s on IV antibiotics of Zithromax and ceftriaxone. She is on DVT prophylaxis. She is on Pepcid. She is also noted to have like iron deficiency anemia. She is started on IV iron, empirically started o n Flagyl. We will follow up her stool for C. diff, as she has recent antibiotic use. Del p.r.n. nausea and on IV fluids with potassium. Monitor the electrolytes. Discussed again with the patient elective outpatient endoscopy and colonoscopy. The patient was seen and case discussed with Dr. Adame. Kaylee BHAGAT cc: [id number] TT: 07/06/2016 12:01:25 Confirmation # [id number] Dictation # [id number] jn
--- NOTE | 2016-07-06 16:17 | CP.PCM.PN ---
Subjective - Date & Time of Evaluation Date of Evaluation: 07/06/16 Time of Evaluation: 15:15 - Subjective Subjective: Infectious Disease Follow Up: July 06, 2016 50 yo female with presentation of nausea, vomiting, diarrhea, and subjective fevers and chills. She also complains of body aches. She is found to have a fever up to 102.2 and leukocytosis of 15 in the ER. The patient had strep throat two months ago. She was given amoxicillin for treatment. The patient was taking amoxicillin doses when she feels febrile at home. Still had a fever of 101.1 F overnight. Started hydration with IV NS with 20 mEq of potassium last night. She did have a diarrhea episode that was evaluated for C. Diff - this was negative. Patient was dehydrated on admission. Cultures negative at 24 hours. WBC were downtrending. Objective - Vital Signs/Intake and Output Vital Signs (last 24 hours): Temp Pulse Resp BP Pulse Ox 99.6 F 57 L 22 122/67 95 07/06/16 06:00 07/06/16 09:50 07/06/16 06:00 07/06/16 09:50 07/06/16 06:00 Intake and Output: 07/06/16 07/06/16 06:59 18:59 Intake Total 1490 Balance 1490 - Medications Medications: Current Medications Acetaminophen (Tylenol 325mg Tab) 650 mg PO Q6H PRN PRN Reason: Fever >100.4 F Last Admin: 07/05/16 20:17 Dose: 650 mg Albuterol/Ipratropium (Duoneb 3 Mg/0.5 Mg (3 Ml) Ud) 3 ml IH [id number] [facility] Last Admin: 07/06/16 13:44 Dose: 3 ml Arformoterol Tartrate (Brovana) 15 mcg IH DAILY [facility] Last Admin: 07/06/16 07:53 Dose: 15 mcg Budesonide (Pulmicort Respules) 0.5 mg IH DAILY [facility] Last Admin: 07/06/16 07:53 Dose: 0.5 mg Enoxaparin Sodium (Lovenox) 40 mg SC DAILY [facility] PRN Reason: Protocol Last Admin: 07/06/16 09:51 Dose: 40 mg Famotidine (Pepcid) 40 mg PO HS [facility] Last Admin: 07/05/16 21:39 Dose: 40 mg Ceftriaxone Sodium (Rocephin 1 Gram Ivpb) 1 gm in 100 mls @ 100 mls/hr IVPB DAILY [facility] PRN Reason: Protocol Last Admin: 07/06/16 09:53 Dose: 100 mls/hr Azithromycin (Zithromax 500mg In Ns) 500 mg in 250 mls @ 167 mls/hr IVPB DAILY [facility] Last Admin: 07/06/16 10:48 Dose: 167 mls/hr Potassium Chloride 20 meq/ (Sodium Chloride) 1,010 mls @ 100 mls/hr IV .Q10H6M [facility] Last Admin: 07/06/16 06:55 Dose: 100 mls/hr Iron Sucrose 200 mg/ Sodium (Chloride) 110 mls @ 110 mls/hr IVPB DAILY [facility] Stop: 07/08/16 11:01 Last Admin: 07/06/16 10:46 Dose: 110 mls/hr Lisinopril (Zestril) 10 mg PO DAILY [facility] Last Admin: 07/06/16 09:50 Dose: 10 mg Metronidazole (Flagyl) 250 mg PO QID [facility] PRN Reason: Protocol Last Admin: 07/06/16 13:30 Dose: 250 mg Ondansetron HCl (Zofran Inj) 4 mg IVP Q6H PRN PRN Reason: Nausea/Vomiting - Labs Labs: 07/06/16 07:00 07/06/16 07:00 - Constitutional Appears: Non-toxic, No Acute Distress - Head Exam Head Exam: ATRAUMATIC, NORMOCEPHALIC - Eye Exam Eye Exam: EOMI, PERRL Pupil Exam: NORMAL ACCOMODATION, PERRL - ENT Exam ENT Exam: Mucous Membranes Moist, Normal External Ear Exam, TM's Normal Bilaterally - Neck Exam Neck Exam: Full ROM, Normal Inspection - Respiratory Exam Respiratory Exam: Decreased Breath Sounds, Rhonchi, NORMAL BREATHING PATTERN. absent: Rales, Wheezes Additional comments: rhonchi right lower lobe - Cardiovascular Exam Cardiovascular Exam: REGULAR RHYTHM, RRR, +S1, +S2 - GI/Abdominal Exam GI & Abdominal Exam: Soft, Normal Bowel Sounds. absent: Distended, Tenderness - Extremities Exam Extremities Exam: Full ROM, Normal Inspection - Neurological Exam Neurological Exam: Alert, Awake, CN II-XII Intact, Oriented x3 - Psychiatric Exam Psychiatric exam: Normal Affect, Normal Mood - Skin Skin Exam: Intact, Normal Color Assessment and Plan - Assessment and Plan (Free Text) Assessment: 50 yo female with nausea, vomiting, diarrhea, and fevers up to 102.2 F. The patient with inconsistent antibiotic use with amoxicillin. Findings of RLL pneunomia on Chest X-ray and CT scan. Patient started on Rocephin, Azithromycin , and Metronidazole. Agree with testing for C. diff. Supportive care. Monitor imaging studies and leukocytosis. Julian cultures sent. The use of Rocephin, Azithromycin, and Flagyl are adequate treatment for now. C. diff testing negative. Leukocytosis was downtrending. Awaiting the rest of the cultures. RLL pneumonia. As patient's appetite improves, can decrease and eventually stop additional IV fluid hydration. Monitor potassium levels. Thank you for allowing me to participate in the care of the patient, we will follow with you.
[2016-07-06] MEDS: cefTRIAXone 1 gm 1 GM/100 ML BAG IV STA (20:52)
--- NOTE | 2016-07-06 21:19 | PN ---
DATE: 07/06/2016 REFERRING PHYSICIAN: Dr. Sorensen. SUBJECTIVE: She is lying in the bed, head at 45 degrees, feels a little better than yesterday, still having low grade fevers, mild cough. No shortness of breath. No nausea, no vomiting. Still having loose bowel movement. No leg pain or leg swelling. OBJECTIVE: GENERAL: No acute distress. VITAL SIGNS: Temperature is 100.1, heart rate is 72, respiratory rate is 20, blood pressure 108/70, pulse ox % on room air. HEENT: Moist mucous membrane. Crowded airway. Mallampati score is 4. NECK: Supple. No JVD. LUNGS: Has scattered rhonchi, some right lower lobe area crackles. HEART: S1, S2. ABDOMEN: Soft, nontender. No organomegaly. EXTREMITIES: There is no edema. NEUROLOGIC: Awake, alert, follows simple command. MEDICATIONS: She is on Brovana 15 mcg inhaled daily, DuoNeb q. 6 hours, Flagyl 250 mg 4 times a day, IV iron was given today. Lovenox 40 mg daily, Pepcid 40 mg at bedtime, potassium with IV fluid, Pul micort inhaled twice a day, Rocephin 1 gram daily, Tylenol p.r.n., Zestril 10 mg daily, Zithromax 500 mg daily, Zofran on a p.r.n. basis. LABORATORY DATA: Shows hemoglobin 8.2, hematocrit 28.1, WBC 11.1, platelet is 352. Sodium 139, pota ssium 4.0, chloride 101, bicarbonate 28, BUN 11, creatinine 0.7, glucose is 111. Hemoglobin A1c 6.4, calcium 8.9, iron is 10. TSH 0.81. MICROBIOLOGY: Blood culture and urine culture are unremarkable. Stool for C. diff has been negative . IMPRESSION AND PLAN: Severe anemia, admitted with gastroenteritis, probably aspiration pneumonia, hy pertension, chronic lung disease, may have sleep apnea syndrome. Clinically, she is improved. Fever curve is better. No more nausea, no vomiting. Still having diarrhea and cough. Continue antibiotic s. Keep head elevated at 45 degree. Gastric prophylaxis. DVT prophylaxis. Continue IV iron. GI fo llowup. Infectious diseases followup. Outpatient sleep study and PFT. Follow up labs in the [facility]. We will follow with you. Garrett Fox MD cc: [id number] TT: 07/06/2016 21:18:36 Confirmation # [id number] Dictation # [id number] ln
[2016-07-06] MEDS: Azithromycin 500MG/NS 250ml 500 MG/250 ML BAG IV STA (21:37)
--- NOTE | 2016-07-06 22:01 | PN ---
DATE: 07/06/2016 SUBJECTIVE: The patient was seen and examined on the bedside. Still having fever. Feeling fatigue and tired. Nauseousness is a little bit better. No swelling of the legs. No chest pain. No dyspnea. PHYSICAL EXAMINATION: VITAL SIGNS: Temperature 99.6, T-max 100.1, pulse 72, blood pressure 108/70, respiratory rate 21. HEENT: Head normocephalic and atraumatic. Eyes: PERRLA. Extraocular muscles are intact. Conjunctivae are clear. Nose patent. Mucous membranes moist. NECK: Supple. No carotid bruit, JVD or thyromegaly. CHEST: Bilaterally symmetrical. HEART: S1, S2 positive. LUNGS: Clear to auscultation. ABDOMEN: Soft. Bowel sounds present. No organomegaly. EXTREMITIES: No edema, no cyanosis. NEUROLOGIC: The patient is awake, alert, moving all 4 extremities. No focal deficit. MEDICATIONS: Brovana, DuoNeb, Flagyl, iron sulfate, Lovenox, Pepcid, NS, Pulmicort, Rocephin, Tylenol, Zestril, azithromycin, and Zofran. LABORATORY DATA: White blood cells 11.1; on admission it was 15.1. Hemoglobin 8.2, hematocrit 28.1, platelets 352. Sodium 139, potassium 4.1, BUN 11, creatinine 0.7, glucose 111. Iron 10. ASSESSMENT AND PLAN: The patient is a 50-year-old lady with leukocytosis, improving; with anemia, hyperglycemia, iron deficiency (got iron infusion today) , proteinuria, hematuria. Seen by infectious disease/Dr. Lassiter. Came with nausea , vomiting, diarrhea, fever of 102.2. Failed outpatient treatment with anb. Now has right lower lobe pneumonia. The patient is getting Rocephin, azithromycin and metronidazole. Clostridium difficile testing is negative. Leukocytosis is down trending. The patient has improved. Monitoring electrolytes. Seen by Kaylee Crockett/GI nurse practitioner. Has a history of diverticulitis, hypertension and asthma. Advance diet as tolerated. She is on DVT prophylaxis and GI prophylaxis. Started on IV iron infusion empirically and started on Flagyl by GI. According to gastrointestinal, they had discussion done with the patient. The patient elected outpatient endoscopy and colonoscopy. Will follow up that. Johanna Sorensen MD cc: [id number] TT: 07/06/2016 22:01:00 Confirmation # [id number] Dictation # [id number] mn MTDDelmar
[2016-07-07] MEDS: Albuterol-Ipratrop 3 mg / 0.5 (3 ml) UD IH SCH ×4 (02:15→19:39)
[2016-07-07] MEDS: Arformoterol 15 mcg/2 ml Inh Sol IH SCH ×2 (08:06→19:40)
[2016-07-07] MEDS: Budesonide 0.5 mg/2 ml Inhal Susp UD IH SCH ×2 (08:08→19:40)
--- NOTE | 2016-07-07 08:09 | PN ---
DATE: 07/06/2016 The patient was seen and evaluated earlier. This is an addendum to the GI progress report dictated by Kaylee Crockett. The patient did have a T-max of 101 last night; today, T-max was 100.1. The patient was seen and evaluated earlier. This is an addendum to the GI progress report dictated by Kaylee Crockett. The real concern for this patient is the patient is being treated for pneumonia. The patient still has some episodes of loose bowel movements. Stool for Clostridium difficile was negative. We will continue the empiric treatment with . The patient has been on 2 different antibiotics. The patient on Flagyl. PHYSICAL EXAMINATION: ABDOMEN: Soft. No tenderness presently. The concern is the diarrhea. If it persists further, we may consider starting a small dose of low dose Questran. We will continue to closely follow up her care and suggest further management based on the clinical course. Stephen Adame MD cc: [id number] TT: 07/07/2016 00:43:31 Confirmation # [id number] Dictation # [id number] anni BROWNE
[2016-07-07] MEDS: Enoxaparin 40 mg Syringe SC SCH (09:16)
[2016-07-07] MEDS: Pantoprazole 40 mg EC Tab PO SCH (09:16)
[2016-07-07] MEDS: cefTRIAXone 1 gm 1 GM/100 ML BAG IVPB SCH (09:16)
[2016-07-07 09:52] LABS: HEMATOCRIT 28.1 % (36.0-48.0); MEAN CELL VOLUME 66.9 fL (80.0-105.0); MEAN CORPUSCULAR HEMOGLOBIN 19.8 pg (25.0-35.0); MEAN CORPUSCULAR HGB CONC 29.5 g/dl (31.0-37.0); MEAN PLATELET VOLUME 9.6 fl (7.0-11.0); RED CELL DISTRIBUTION WIDTH 18.6 % (11.5-14.5); WHITE BLOOD COUNT 11.2 10^3/ul (4.5-11.0)
[2016-07-07 09:59] LABS: BLOOD UREA NITROGEN 10 mg/dL (7-21); CALCIUM 8.6 mg/dL (8.4-10.5); CARBON DIOXIDE 26 mmol/L (21-33); CHLORIDE 101 mmol/L (98-107); GFR AFRICAN-AMERICAN > 60; GLUCOSE,RANDOM 94 mg/dL (70-110); POTASSIUM 3.8 mmol/L (3.6-5.0); SODIUM 137 mmol/L (132-148)
--- NOTE | 2016-07-07 12:22 | PN ---
DATE: 07/07/2016 Seen and examined at the bedside earlier today. The patient does report still having diarrhea. She had 2 episodes this morning, it was watery, and a total of 6 bowel movements yesterday. Nausea is sl ightly better. She tolerated oatmeal and fruit this morning. Complains of coughing and had shortnes s of breath this morning, in no acute distress now. She did report having fever. VITAL SIGNS: T-max temp this morning was 100.2, blood pressure 121/82, pulse 102, respirations 20, 9 5% room air. LABORATORIES: WBCs 11.2, H and H is 8.3 and 28.1, platelets are 318. Sodium 137, K 3.8, BUN is 10, creatinine 0.8. PHYSICAL EXAMINATION: HEENT: Sclera is anicteric. NECK: Supple. CARDIAC: S1, S2. LUNG SOUNDS: With decreased breath sounds, but did not hear any rales or wheeze. ABDOMEN: With bowel sounds, soft, nontender. No rebound, guarding. EXTREMITIES: No edema. NEUROLOGIC: Awake and alert. ASSESSMENT: A 50-year-old female with likely viral gastroenteritis and with lung infiltrates, probab ly pneumonia. She has history of recent strep throat about 2 months ago. Her WBC count is improving , although patient is still having fevers, anemia, no active gastrointestinal bleed. She was found t o have iron deficiency anemia, history of diverticulitis, hypertension, obesity. PLAN: Continue her diet as tolerated. She is on regular diet. The patient is on IV antibiotics of Zithromax and ceftriaxone, is also on p.o. Flagyl, on deep venous thrombosis prophylaxis. She is get ting IV iron and getting albuterol breathing treatments. Continue ID followup, pulmonary followup. Again, patient would benefit from elective outpatient endoscopy in view of anemia when patient is imp roved. The patient was seen and case discussed with Dr. Adame. Kaylee BHAGAT cc: [id number] TT: 07/07/2016 12:21:42 Confirmation # [id number] Dictation # [id number] en
[2016-07-07] MEDS: Azithromycin 500MG/NS 250ml 500 MG/250 ML BAG IVPB SCH (12:49)
[2016-07-07] MEDS: Lactobacillus Acidophilus 500 MU Cap PO SCH ×2 (14:07→17:46)
--- NOTE | 2016-07-07 18:10 | PN ---
DATE: 07/07/2016 REFERRING PHYSICIAN: Dr. Sorensen. SUBJECTIVE: She is sitting side of the bed, has a cold pack on, spiked fever up to 101.4. Still hav ing diarrhea, had watery ____bowel movement today, breathing is okay. Mild cough. No nausea, no agus st pain, no leg pain or leg swelling. OBJECTIVE: GENERAL: No acute distress. VITAL SIGNS: Temperature is 101.4, heart rate is 102, respiratory rate is 20, blood pressure 121/82. HEENT: Moist mucous membrane. Crowded airway. Mallampati score is 4. NECK: Supple. No JVD. LUNGS: Have a few scattered rhonchi. HEART: S1 and S2. ABDOMEN: Soft, nontender, nondistended. EXTREMITIES: There is no edema. NEUROLOGIC: Awake, alert, follows simple commands. MEDICATIONS: She is on acidophilus 1 capsule 3 times a day, Brovana 15 mcg twice a day, DuoNeb q. 6 hours, Flagyl LA 250 mg q.i.d. p.o., iron sucrose 200 mg daily, Lovenox 40 mg daily, Pepcid 40 mg da michaela, potassium supplement, IV fluid at 100 mL per hour, Protonix 40 mg daily, Pulmicort inhaler twice a day, Rocephin 1 gram daily, Tylenol p.r.n. basis, Zestril 10 mg daily, Zithromax 500 mg daily, Zof ran on a p.r.n. basis. LABORATORY DATA: Shows hemoglobin 8.2, hematocrit 28.1, WBC 11.2, platelet is 318. Sodium 137, pota ssium ____, chloride 101, bicarbonate 26, BUN 10, creatinine 0.8, glucose 94, calcium is 8.6. Microb iology: Blood cultures, urine culture have been negative. Stool for C. diff has been negative. IMPRESSION AND PLAN: Severe anemia, admitted with gastroenteritis, probably aspiration pneumonia, hy pertension, chronic lung disease, may have sleep apnea syndrome, recurrent fevers, been on Zithromax and Rocephin, did not respond. Flagyl added today. Pulmonary point of view, continue bronchodilator , keep head at 45 degree. Continue IV fluid. Gastric prophylaxis. Deep venous thrombosis prophylax is. Sleep apnea precaution. Outpatient attended sleep study and PFT. If persistent fever, may need more investigation and workup including rule out inflammatory GI disease. Thank you and will follow with you. Garrett Fox MD cc: [id number] TT: 07/07/2016 18:09:07 Confirmation # [id number] Dictation # [id number] jn
[2016-07-07 18:13] VITALS: O2SAT 96
--- NOTE | 2016-07-07 22:18 | CP.PCM.PN ---
Subjective - Date & Time of Evaluation Date of Evaluation: 07/07/16 Time of Evaluation: 22:06 - Subjective Subjective: Infectious Disease Follow Up: July 06, 2016 50 yo female with presentation of nausea, vomiting, diarrhea, and subjective fevers and chills. She also complains of body aches. She is found to have a fever up to 102.2 and leukocytosis of 15 in the ER. The patient had strep throat two months ago. She was given amoxicillin for treatment. The patient was taking amoxicillin doses when she feels febrile at home. Still had a fever of 102.4 F this afternoon. She did have a diarrhea episodes. Her C. Diff testing was negative. Patient was dehydrated on admission. Cultures negative at 24 hours. WBC were downtrending. Objective - Vital Signs/Intake and Output Vital Signs (last 24 hours): Temp Pulse Resp BP Pulse Ox 100.2 F H 111 H 20 143/93 H 96 07/07/16 18:00 07/07/16 16:00 07/07/16 16:00 07/07/16 16:00 07/07/16 16:00 Intake and Output: 07/07/16 07/08/16 18:59 06:59 Intake Total 240 Balance 240 - Medications Medications: Current Medications Acetaminophen (Tylenol 325mg Tab) 650 mg PO Q6H PRN PRN Reason: Fever >100.4 F Last Admin: 07/07/16 14:07 Dose: 650 mg Albuterol/Ipratropium (Duoneb 3 Mg/0.5 Mg (3 Ml) Ud) 3 ml IH [id number] [facility] Last Admin: 07/07/16 19:39 Dose: Not Given Arformoterol Tartrate (Brovana) 15 mcg IH DAILY [facility] Last Admin: 07/07/16 19:40 Dose: Not Given Budesonide (Pulmicort Respules) 0.5 mg IH DAILY [facility] Last Admin: 07/07/16 19:40 Dose: Not Given Enoxaparin Sodium (Lovenox) 40 mg SC DAILY [facility] PRN Reason: Protocol Last Admin: 07/07/16 09:16 Dose: 40 mg Famotidine (Pepcid) 40 mg PO HS [facility] Last Admin: 07/06/16 21:40 Dose: 40 mg Ceftriaxone Sodium (Rocephin 1 Gram Ivpb) 1 gm in 100 mls @ 100 mls/hr IVPB DAILY [facility] PRN Reason: Protocol Last Admin: 07/07/16 09:16 Dose: 100 mls/hr Azithromycin (Zithromax 500mg In Ns) 500 mg in 250 mls @ 167 mls/hr IVPB DAILY [facility] Last Admin: 07/07/16 12:49 Dose: 167 mls/hr Potassium Chloride 20 meq/ (Sodium Chloride) 1,010 mls @ 100 mls/hr IV .Q10H6M [facility] Last Admin: 07/07/16 06:23 Dose: 100 mls/hr Iron Sucrose 200 mg/ Sodium (Chloride) 110 mls @ 110 mls/hr IVPB DAILY [facility] Stop: 07/08/16 11:01 Last Admin: 07/07/16 15:26 Dose: 110 mls/hr Lactobacillus Acidophilus (Bacid Acidophilus) 1 cap PO TID [facility] Last Admin: 07/07/16 17:46 Dose: 1 cap Lisinopril (Zestril) 10 mg PO DAILY [facility] Last Admin: 07/07/16 09:16 Dose: 10 mg Metronidazole (Flagyl) 250 mg PO QID [facility] PRN Reason: Protocol Last Admin: 07/07/16 17:46 Dose: 250 mg Ondansetron HCl (Zofran Inj) 4 mg IVP Q6H PRN PRN Reason: Nausea/Vomiting Last Admin: 07/07/16 20:39 Dose: 4 mg Pantoprazole Sodium (Protonix Ec Tab) 40 mg PO ACB [facility] Last Admin: 07/07/16 09:16 Dose: 40 mg - Labs Labs: 07/07/16 08:55 07/07/16 08:55 - Constitutional Appears: Non-toxic, No Acute Distress - Head Exam Head Exam: ATRAUMATIC, NORMOCEPHALIC - Eye Exam Eye Exam: EOMI, PERRL Pupil Exam: NORMAL ACCOMODATION, PERRL - ENT Exam ENT Exam: Mucous Membranes Moist, Normal External Ear Exam, TM's Normal Bilaterally - Respiratory Exam Respiratory Exam: Decreased Breath Sounds, Rhonchi, NORMAL BREATHING PATTERN. absent: Rales, Wheezes Additional comments: rhonchi right lower lobe - Cardiovascular Exam Cardiovascular Exam: REGULAR RHYTHM, RRR, +S1, +S2 - GI/Abdominal Exam GI & Abdominal Exam: Soft, Normal Bowel Sounds. absent: Distended, Tenderness - Extremities Exam Extremities Exam: Full ROM, Normal Inspection - Neurological Exam Neurological Exam: Alert, Awake, CN II-XII Intact, Oriented x3 - Psychiatric Exam Psychiatric exam: Normal Affect, Normal Mood - Skin Skin Exam: Intact, Normal Color Assessment and Plan - Assessment and Plan (Free Text) Assessment: 50 yo female with nausea, vomiting, diarrhea, and fevers up to 102.2 F. The patient with inconsistent antibiotic use with amoxicillin. Findings of RLL pneunomia on Chest X-ray and CT scan. Patient started on Rocephin, Azithromycin , and Metronidazole. Agree with testing for C. diff. Supportive care. Monitor imaging studies and leukocytosis. Julian cultures sent. The use of Rocephin, Azithromycin, and Flagyl are adequate treatment for now. C. diff testing negative. Leukocytosis was downtrending. Awaiting the rest of the cultures. RLL pneumonia. As patient's appetite improves, can decrease and eventually stop additional IV fluid hydration. Monitor potassium levels. Modify Rocephin to Teflaro. Thank you for allowing me to participate in the care of the patient, we will follow with you.
--- NOTE | 2016-07-08 00:45 | PN ---
DATE: 07/07/2016 ADDENDUM: This is an addendum to the GI progress report dictated by Kaylee Crockett NP. SUBJECTIVE: The patient did still has some loose bowel movements, was nauseous. The patient has been on p.o. Flagyl and also IV. The patient is also on ceftriaxone and azithromycin. Presently treated for right lower lobe pneumonia. Continue the plan. PHYSICAL EXAMINATION: ABDOMEN: Soft. No tenderness. IMPRESSION/PLAN: Presence of acute diarrhea, history of nausea, vomiting, clinically suspect to be gastroenteritis. However, patient also found to have right lower lobe pneumonia. Rule out Clostridium difficile colitis. Continue the antibiotics as per ID, PPI repeat the stool for C. diff. We will continue to closely follow up her care and suggest further management based on the clinical course. Thank you very much for allowing us to participate in the care of the patient. Stephen Adame MD cc: [id number] TT: 07/08/2016 00:44:42 Confirmation # [id number] Dictation # [id number] mn PAVAN
[2016-07-08] MEDS: Albuterol-Ipratrop 3 mg / 0.5 (3 ml) UD IH SCH ×3 (01:44→14:23)
[2016-07-08] MEDS: Budesonide 0.5 mg/2 ml Inhal Susp UD IH SCH (07:50)
[2016-07-08] MEDS: Arformoterol 15 mcg/2 ml Inh Sol IH SCH (07:51)
[2016-07-08 07:55] VITALS: RESP 19; TEMP 99.9
[2016-07-08] MEDS: Pantoprazole 40 mg EC Tab PO SCH (08:08)
--- NOTE | 2016-07-08 08:24 | PN ---
DATE: 07/07/2016 HISTORY OF PRESENT ILLNESS: The patient is seen and examined at the bedside. Daughter was sitting on the bedside also. The patient does not like when she is getting fever. Getting her a hot/cold pack. Has fever spiked 101.4. Still having diarrhea, watery bowel movements and coughing. No swelling of the leg. No dyspnea. PHYSICAL EXAMINATION: VITALS: Temperature 101.4, T-Max is 102.4, heart rate 111, blood pressure 143/ 93, respirations 20. HEENT: Head normocephalic, atraumatic. Eyes PERRLA, muscles intact, conjunctivae clear. Nose patent mucosa moist NECK: No carotic bruits or thyromegaly. CHEST: Bilateral symet . HEART: S1, S2 positive. LUNGS: Clear to auscultation. ABDOMENT: Soft, bowel sounds present, no organomegaly. EXTREMITIES: No edema, no cyanosis. NEUROLOGIC: Awake and alert. no focal deficit. MEDICATIONS: Acidophilus, Brovana, ceftaroline, DuoNeb, Flagyl, iron , Lovenox , Pepcid. LABORATORY DATA: White blood cells 11.2. On admission, it was 15.1. Hemoglobin 8.3, hematocrit 28.1, sodium 137, potassium 3.8, BUN 10, creatinine 0.8, iron 10 status post iron infusion . IMPRESSION: Proteinuria, hematuria. Seen by Dr. Lassiter, infectious disease. Came with nausea, vomiting, diarrhea, and fever. patient antibiotic treatment with amoxicillin. Now has right lower lobe pneumonia. Chest x-ray and CAT scan noted . C. difficile toxin colitis. Leukocytosis. PLAN: Discussion had with patient and her daughter. All questions answered. The patient has severe anemia. History of asthma . Continue bronchodilators, gastrointestinal prophylaxis, deep vein thrombosis prophylaxis, sleep apnea precautions. GI is on the case. For diarrhea, I ordered lactobacillus. Gastroenteritis, continue diet as tolerated. Currently, the patient states she is getting fevers, she is feeling nauseous. Del ordered. Ordered to GI. The patient will get referred for elective endoscopy as outpatient when she improved. Will follow up. Johanna Sorensen MD cc: [id number] TT: 07/08/2016 01:06:04 Confirmation # [id number] Dictation # [id number] mn PAVAN
[2016-07-08] MEDS: Enoxaparin 40 mg Syringe SC SCH (09:40)
[2016-07-08] MEDS: Lactobacillus Acidophilus 500 MU Cap PO SCH (09:40)
[2016-07-08 09:47] VITALS: BP 135/77; PULSE 73
[2016-07-08] MEDS ORDERED: Ceftaroline 600 MG in Sodium Chloride 0.9% 100 ML IVPB SCH (10:00)
[2016-07-08] MEDS ORDERED: Fluticasone Nasal 50 mcg/Spray NS SCH (10:15)
[2016-07-08] MEDS: Azithromycin 500MG/NS 250ml 500 MG/250 ML BAG IVPB SCH (10:48)
--- NOTE | 2016-07-08 11:53 | PN ---
DATE: 07/08/2016 REFERRING PHYSICIAN: Dr. Sorensen. SUBJECTIVE: She is sitting side of the bed. Daughter is at bedside. Night was unremarkable. Still having watery diarrhea. Temperature was 99.9. There is no cough, no sputum production. No leg edward n or leg swelling. OBJECTIVE: GENERAL: No acute distress. VITAL SIGNS: Temperature is 99.9, heart rate is 95, respiratory rate is 20, blood pressure 116/66, p ulse ox 96% nasal cannula. HEENT: Moist mucous membranes. Crowded airway. Mallampati score is 4. NECK: Supple. No JVD. LUNGS: Has a few scattered rhonchi. HEART: S1 and S2. ABDOMEN: Soft, nontender. No organomegaly. EXTREMITIES: No edema. NEUROLOGIC: Awake, alert, follows simple commands. MEDICATIONS: She is on lactobacillus 1 capsule 3 times a day, Brovana 15 mcg daily, also getting cef taroline now 600 mg q. 12 hours, Claritin 10 mg daily, DuoNeb q. 6 hours, Flagyl 250 mg q.i.d., Flona se 1 spray each nostril daily, Lovenox 40 mg daily, Pepcid 40 mg daily, IV fluid with potassium, also getting Protonix 40 mg daily, Pulmicort inhaled twice a day, Singulair 10 mg daily, Tylenol p.r.n. b asis, Zestril 10 mg daily, Zithromax 500 mg daily, Zofran on a p.r.n. basis. LABORATORY DATA: Reviewed. No new lab is available. MICROBIOLOGY: Blood culture, urine culture and stool is unremarkable. IMPRESSION AND PLAN: Recurrent fever, has pneumonia, colitis, severe anemia, chronic lung disease, m ay have sleep apnea syndrome. Case discussed with the patient. His daughter also spoke to Dr. Sorensen in detail. Cause of fever seems like coming from GI tract, colitis noted. Antibiotics have been ch anged. Also stool specimen again being sent. Continue bronchodilator. Keep head elevated at 45 degr ees. Will receive severe anemia. The patient is being followed by GI. Need to show the loss of blood through the GI tract. Follow up labs in the morning. We will follow with you. Garrett Fox MD cc: [facility] TT: 07/08/2016 11:52:21 Confirmation # [id number] Dictation # [id number] rn
[2016-07-08] MEDS ORDERED: Barium Sulfate Susp 2.1% w/v, 2.0% w/w 450 mL Bottle PO ONE (11:58)
--- NOTE | 2016-07-08 12:37 | PN ---
DATE: 07/08/2016 Seen and examined at the bedside earlier this morning. The patient was out of bed in the chair. She is tolerating oral intake more. Not much nausea, but does complain of still having diarrhea. No reports of bleeding and no reports of any fever overnight or abdominal pain. VITAL SIGNS: Temperature is 99.9, blood pressure 135/77, pulse 73, respirations 19, 96 on the nasal cannula. LABORATORY DATA: No new labs are noted for today. PHYSICAL EXAMINATION: HEENT: Sclera is anicteric. NECK: Supple. CARDIAC: S1, S2. LUNGS: With decreased breath sounds with some faint rhonchi, no rales or wheeze. ABDOMEN: With bowel sounds, soft. No tenderness on palpation. No rebound, guarding, or organomegaly. EXTREMITIES: No edema. ASSESSMENT/PLAN: The patient with fever, noted to have pneumonia. She also likely originally thought to have gastroenteritis. Continued to have diarrhea. She did have stool for Clostridium difficile that was negative. The patient also is noted to have anemia. No active gastrointestinal bleed. Iron studies did show she has low, some iron deficiency. She is being followed by infectious disease and her intravenous antibiotics were changed. The ceftriaxone was discontinued and she was changed to ____ but continues on Flagyl and azithromycin. She was also started on lactobacillus. We will continue gastrointestinal prophylaxis and she is also on deep venous thrombosis prophylaxis. In view of the fever and diarrhea, we will repeat her CT scan of abdomen and pelvis with intravenous and oral contrast as her initial CT scan was done without. Continue her diet as tolerated. She is being followed by pulmonary as well as infectious disease. The patient was seen and discussed with Dr. Adame. Spoke to the nursing staff as well. Kaylee Nelsones LEOLA cc: [id number] TT: 07/08/2016 12:36:38 Confirmation # [id number] Dictation # [id number] BROWNE
--- NOTE | 2016-07-08 15:33 | CP.PCM.PN ---
Subjective - Date & Time of Evaluation Date of Evaluation: 07/08/16 Time of Evaluation: 14:30 - Subjective Subjective: Infectious Disease Follow Up: July 08, 2016 50 yo female with presentation of nausea, vomiting, diarrhea, and subjective fevers and chills. She also complains of body aches. She is found to have a fever up to 102.2 and leukocytosis of 15 in the ER. The patient had strep throat two months ago. She was given amoxicillin for treatment. The patient was taking amoxicillin doses when she feels febrile at home. Still had a fever of 102.4 F yesterday afternoon. She did have a diarrhea episodes. Her C. Diff testing was negative. Patient was dehydrated on admission. Cultures negative at 24 hours. WBC were downtrending. Treated for pneumonia. On Teflaro. Unclear if it was working as she had not been on it for 24 hours yet. The patient stated that she was feeling worse and that her diarrhea had not improved. The patient wants to sign out AMA as she feels that the hospital is not helping her. Objective - Vital Signs/Intake and Output Vital Signs (last 24 hours): Temp Pulse Resp BP Pulse Ox 99.9 F H 73 19 135/77 96 07/08/16 06:00 07/08/16 09:40 07/08/16 06:00 07/08/16 09:40 07/08/16 06:00 Intake and Output: 07/08/16 07/08/16 06:59 18:59 Intake Total 120 Balance 120 - Labs Labs: 07/07/16 08:55 07/07/16 08:55 - Constitutional Appears: Non-toxic, No Acute Distress, Chronically Ill - Head Exam Head Exam: ATRAUMATIC, NORMOCEPHALIC - Eye Exam Eye Exam: EOMI, PERRL Pupil Exam: NORMAL ACCOMODATION, PERRL - ENT Exam ENT Exam: Mucous Membranes Moist, Normal External Ear Exam, TM's Normal Bilaterally - Respiratory Exam Respiratory Exam: Decreased Breath Sounds, Rhonchi. absent: Rales, Wheezes Additional comments: rhonchi right lower lobe - Cardiovascular Exam Cardiovascular Exam: REGULAR RHYTHM, RRR, +S1, +S2 - GI/Abdominal Exam GI & Abdominal Exam: Soft, Normal Bowel Sounds. absent: Distended, Tenderness - Extremities Exam Extremities Exam: Full ROM, Normal Inspection - Neurological Exam Neurological Exam: Alert, Awake, CN II-XII Intact, Oriented x3 - Psychiatric Exam Psychiatric exam: Normal Affect, Normal Mood - Skin Skin Exam: Intact, Normal Color Assessment and Plan - Assessment and Plan (Free Text) Assessment: 50 yo female with nausea, vomiting, diarrhea, and fevers up to 102.2 F. The patient with inconsistent antibiotic use with amoxicillin. Findings of RLL pneunomia on Chest X-ray and CT scan. Patient started on Rocephin, Azithromycin , and Metronidazole. Testing for C. diff was negative. Supportive care. Monitor imaging studies and leukocytosis. Julian cultures sent. The use of Teflaro, Azithromycin, and Flagyl are adequate treatment for now. C. diff testing negative. Leukocytosis was downtrending. Awaiting the rest of the cultures. RLL pneumonia. As patient's appetite improves, can decrease and eventually stop additional IV fluid hydration. Monitor potassium levels. On Teflaro was it has not been on for 24 hours as of yet. The patient feels that she is worsening and wants to sign out AMA. She doesn't understand why she isn't better already. She is not willing to stay in hospital despite explanations as to what her current problem is. Thank you for allowing me to participate in the care of the patient, we will follow with you.
--- NOTE | 2016-07-25 08:05 | DS ---
CHIEF COMPLAINT: Abdominal pain, nausea, vomiting, diarrhea. HISTORY OF PRESENT ILLNESS: The patient is a 50-year-old female with past medical history of hypertension, asthma, gastritis, cholecystectomy. Came to the Emergency Room with abdominal pain, nausea, vomiting, diarrhea. Also reports subjective fevers, chills and generalized body aches. Denies taking of any medication for these symptoms. We admitted the patient, did CAT scan of abdomen and pelvis. Consult is called with Dr. Lassiter, Dr. Adame, Dr. Fox. Got better, but was not ready for discharge, but finally patient decided to go home against medical advice. prescription of the medications given. Followup in my office given. PAST MEDICAL HISTORY: Gastritis, cholecystectomy. FAMILY HISTORY: Father and mother noncontributory. HABITS: No smoking, no drugs, no ethanol. ALLERGIES: The patient is not allergic with any medication. CURRENT MEDICATIONS: Advair, lisinopril. REVIEW OF SYSTEMS: The patient was seen and examined on the bedside, looks comfortable. No nausea, vomiting, diarrhea. No hematuria, no hematochezia. No swelling of the legs. No chest pain, no palpitation. No headache, no dizziness, but still feeling fatigued and tired. Still having watery diarrhea. PHYSICAL EXAMINATION: VITAL SIGNS: Temperature 99.9, heart rate 95, blood pressure 120/60, pulse oximetry 96%. HEENT: Head normocephalic, atraumatic. Eyes: PERRLA. Extraocular muscles intact. Conjunctivae clear. Nose patent. Mucous membranes moist. NECK: Supple. No carotid bruit, no JVD, no thyromegaly. CHEST: Bilaterally symmetrical. HEART: S1, S2 positive. LUNGS: Clear to auscultation. ABDOMEN: Soft. Bowel sounds positive. No organomegaly. EXTREMITIES: No edema, no cyanosis. NEUROLOGIC: The patient is awake, alert, moving all 4 extremities. No focal deficit. MEDICATIONS: Lactobacillus, Brovana, ceftaroline, Claritin, DuoNeb, Flagyl, Flonase, Lovenox, Pepcid, Protonix, Pulmicort, Singulair, Zestril, azithromycin. LABORATORIES: White blood cells 11.2, hemoglobin 8.3, hematocrit 28.1, platelets 318. Sodium 137, potassium 3.8, BUN 10, creatinine 0.8, calcium 8.6. ASSESSMENT AND PLAN: The patient is a 50-year-old female with leukocytosis, anemia, hyperglycemia, proteinuria, hematuria, was having recurrent fever, had pneumonia, colitis, chronic lung disease, sleep apnea syndrome. Fever is getting better. The patient got IV antibiotics. Plan was to continue IV antibiotics. The patient decided to go home against medical advice. The patient left home against medical advice, but still we gave her prescriptions. Follow up in my office. Johanna Sorensen MD cc: [id number] TT: 07/25/2016 08:05:23 en MTDD
== END 2016-07-08 14:55 | disposition left against medical advice (07) | DRG 194 ==
LOC: ED 02:15 → ERH 06:27 → 3RSO 08:24
PROVIDERS: ADMIT Internal Medicine; ATTEND Internal Medicine
PROC: 3E0F7GC Introduction of Other Therapeutic Substance into Respiratory Tract, Via Natural or Artificial Opening (ICD-10-PCS; principal; 2016-07-05)
DX: J18.9 Pneumonia, unspecified organism (principal); A08.4 Viral intestinal infection, unspecified; Z68.41 Body mass index [BMI] 40.0-44.9, adult; I10 Essential (primary) hypertension; D50.9 Iron deficiency anemia, unspecified; J44.9 Chronic obstructive pulmonary disease, unspecified; J45.909 Unspecified asthma, uncomplicated; K29.70 Gastritis, unspecified, without bleeding; E87.6 Hypokalemia; E66.9 Obesity, unspecified; M54.16 Radiculopathy, lumbar region; E86.0 Dehydration; R31.9 Hematuria, unspecified; K57.90 Diverticulosis of intestine, part unspecified, without perforation or abscess without bleeding; G47.30 Sleep apnea, unspecified; Z90.49 Acquired absence of other specified parts of digestive tract; Z80.0 Family history of malignant neoplasm of digestive organs; Z80.3 Family history of malignant neoplasm of breast; Z82.49 Family history of ischemic heart disease and other diseases of the circulatory system